=== PATIENT | male | born 1990 | race Caucasian/White ===

== ENCOUNTER 2020-10-24 15:03 | Emergency (ER) | payer OTHER ==
[2020-10-24] MEDS ORDERED: COZAAR50 MG PO (18:57)
[2020-10-24] MEDS ORDERED: ROBAXIN750 MG PO (18:57)
[2020-10-24] MEDS ORDERED: PREDNISONE50 MG PO (18:57)
== END 2020-10-24 19:20 | disposition home or self-care (01) ==
LOC: FER 15:03
DX: M54.31 Sciatica, right side (principal); I10 Essential (primary) hypertension; F17.210 Nicotine dependence, cigarettes, uncomplicated; Z98.890 Other specified postprocedural states; Z88.0 Allergy status to penicillin
CPT/HCPCS: 72100; J1885; J7512